=== PATIENT | female | born 1945 | race Caucasian/White ===

== ENCOUNTER 2022-04-21 08:16 | Outpatient (CLI) | payer MEDICARE, BC ==
[2022-04-21] MEDS ORDERED: Lidocaine 1% PF 5 ML VIAL ONE (08:49)
[2022-04-21] MEDS ORDERED: Sodium Bicarbonate 2.5 MEQ/5 ML VIAL ONE (08:49)
[2022-04-21 11:08] VITALS: BP 128/73; TEMP 97.2
[2022-04-21] MEDS ORDERED: Iopamidol-M 200 41% 10 ML VIAL FS ONE (13:23)
== END 2022-04-21 11:53 | disposition home or self-care (01) ==
LOC: CSHRAD 08:16
PROVIDERS: ATTEND Family Medicine
DX: M96.1 Postlaminectomy syndrome, not elsewhere classified (principal); M54.16 Radiculopathy, lumbar region; M46.1 Sacroiliitis, not elsewhere classified; M47.816 Spondylosis without myelopathy or radiculopathy, lumbar region; Z98.1 Arthrodesis status
CPT/HCPCS: 62304; 72100; 72132; Q9966